=== PATIENT | male | born 1980 | race Two or more races ===

== ENCOUNTER 2023-10-13 15:43 | Emergency (ER) | payer SELFPAY ==
[~2023-10-13] VITALS: Ht 177.8 cm; Wt 96.7 kg
[2023-10-13 17:12] LABS: Hematocrit 45.2 % (41.0-53.0); Mean Corpuscular Hemoglobin 32.6 pg (28.0-32.0); Mean Corpuscular Hgb Conc. 35.3 g/dL (32.0-36.0); Mean Corpuscular Volume 92.2 fL (80.0-100.0); Red Cell Distribution Width 12.5 % (11.8-14.3); White Blood Cell 8.7 10^3/uL (4.4-10.8)
[2023-10-13 17:16] LABS: Basophils % (manual) 0 (0.0-2.0); Blast Cells 0; Eosinophils % (manual) 0 (0-7); Metamyelocytes % 0; Myelocytes % 0; Promyelocytes % 0; Reactive Lymphocytes 0
[2023-10-13 17:34] LABS: Alanine Aminotransferase 44 U/L (7-40); Albumin 4.7 g/dL (3.2-4.8); Alkaline Phosphatase 73 U/L (46-116); Anion Gap 8 (5-15); Aspartate Aminotransferase 18 U/L (13-40); BUN/Creatinine Ratio 10.4 (10.0-20.0); Bilirubin, Total 0.6 mg/dL (0.2-1.0); Blood Urea Nitrogen 10 mg/dL (9-23); Calcium 9.4 mg/dL (8.5-10.1); Carbon Dioxide 26 mmol/L (20-30); Chloride 104 mmol/L (98-107); Glucose 310 mg/dL (74-106); Sodium 138 mmol/L (136-145); Total Protein 7.3 g/dL (5.7-8.2)
[2023-10-13 17:44] LABS: Band Neutrophils % (manual) 1; Lymphocytes % (manual) 32 (10.0-50.0); Monocytes % (manual) 6 (0-12)
[2023-10-13 17:45] LABS: Platelet Estimate Adequate
[2023-10-13 18:31] LABS: INR 1.03 (0.9-1.15); Partial Thromboplastin Time 26.9 SEC (24.5-34.5); Prothrombin Time 10.8 sec (9.3-11.8)
[2023-10-13 21:00] LABS: Urine Bacteria NONE SEEN /hpf (None Seen); Urine Blood Negative /uL (Negative); Urine Clarity Clear (Clear); Urine Color Colorless (Yellow); Urine Protein, UAD Negative (Negative); Urine Specific Gravity 1.042 (1.001-1.035); Urine Urobilinogen Normal (Negative); Urine WBC 2 /hpf (0 - 3); Urine pH 5.5 (5.0-8.0)
[2023-10-13] MEDS ORDERED: METR-344 PO (21:56)
[2023-10-13] MEDS ORDERED: LEVO750T8 PO (21:56)
[2023-10-13 22:09] VITALS: BP 146/95; PULSE 82; RESP 16; TEMP 98.5; O2SAT 98
== END 2023-10-13 22:11 | disposition home or self-care (01) ==
LOC: ER 15:43
DX: R10.9 Unspecified abdominal pain (principal); R73.9 Hyperglycemia, unspecified; I16.0 Hypertensive urgency
CPT/HCPCS: 36415; 71046; 74176; 80053; 81001; 83036; 83605; 85007; 85027; 85610; 85730; 86141